=== PATIENT | female | born 1960 | race Caucasian/White ===

== ENCOUNTER 2017-04-18 18:20 | Observation (INO) | payer OTHER ==
[2017-04-18] MEDS ORDERED: ZOFRAN ODT 4 MG PO (20:04)
[2017-04-18 20:42] LABS: BASOPHIL % 0.2 % (0.0-0.4); Basophil (Absolute #) 0.01 (0-0.4); Eosinophil % 2.6 % (0.00-5.0); Eosinophil (Absolute #) 0.12 (0-0.5); Granulocyte Absolute (ANC) 3.03 (1.4-6.9); Hematocrit 39.3 % (35-47); Hemoglobin 12.8 gm/dl (12.0-16.0); Lymphocyte (Absolute #) 1.03 (1.0-4.6); Lymphocytes % 22.7 % (24.0-44.0); Mean Cell Volume 88.7 fl (78-100); Mean Corpuscular Hemoglobin 28.9 pg (26-32); Mean Corpuscular Hgb Concent. 32.6 g/dl (32-36); Mean Platelet Volume 11.7 fl (6-9.5); Monocyte (Absolute #) 0.34 (0.0-1.3); Monocytes % 7.5 % (0.0-12.0); Platelet Count 126 K/mm3 (150-450); Red Blood Count 4.43 M/mm3 (4.1-5.4); Red Cell Distribution Width 14.3 % (11.5-14.0); White Blood Count 4.5 K/mm3 (4.0-10.5)
[2017-04-18 20:44] LABS: ADD MANUAL DIFF? NO (NO)
[2017-04-18] MEDS: Dextrose 5% -0.45 NaCl 1000 ML 1,000 ML IV (20:53)
[2017-04-18] MEDS: Zofran 4 MG/2 ML VIAL IV (20:58)
[2017-04-18 21:05] LABS: ALBUMIN 3.4 g/dL (3.4-5.0); ALKALINE PHOSPHATASE 275 U/L (46-116); BLOOD UREA NITROGEN 17 mg/dL (9-20); CHLORIDE 104 mEq/L (98-107); Calcium 9.1 mg/dL (8.5-10.1); Carbon Dioxide 27.2 mEq/L (21-32); Creatinine 1 0.85 mg/dl (0.55-1.30); EST GLOMERULAR FILTRATION RATE > 60 ML/MIN; Glucose 107 MG/DL (70-110); Potassium 3.7 mEq/L (3.5-5.1); SGOT/AST 37 U/L (15-37); SGPT/ALT 45 U/L (12-78); SODIUM 143 mEq/L (136-145); Total Protein 7.9 gm/dL (6.4-8.2)
[2017-04-18] MEDS: Actigall 300MG PO (23:00)
[2017-04-19] MEDS: Zofran 4 MG/2 ML VIAL IV ×2 (03:26→08:49)
[2017-04-19] MEDS: Oxycontin 10 MG ER PO (03:26)
[2017-04-19] MEDS ORDERED: MEDICATION INTERVENTION MC ×3 (08:15→10:15)
[2017-04-19] MEDS: Oxy-IR 5 MG PO (08:48)
[2017-04-19] MEDS: Dextrose 5% -0.45 NaCl 1000 ML 1,000 ML IV (08:49)
[2017-04-19] MEDS ORDERED: NON-FORMULARY ITEM (Omeprazole [Omeprazole] 40 MG) PO (10:00)
[2017-04-19] MEDS ORDERED: NON-FORMULARY ITEM (Mycophenolate Mofetil [Cellcept] 500 MG) PO (10:00)
[2017-04-19] MEDS ORDERED: CELECOXIB 50 MG PO (10:00)
[2017-04-19] MEDS ORDERED: MODAFINIL 200 MG PO (10:00)
[2017-04-19] MEDS ORDERED: SPIRONOLACTONE 50 MG PO (10:00)
[2017-04-19] MEDS: Aldactone 25 MG PO (10:19)
[2017-04-19] MEDS: Protonix 40MG Tablet PO (10:20)
[2017-04-19] MEDS: Colace 100 MG PO (10:20)
[2017-04-19] MEDS: Zestril 20 MG PO (10:21)
[2017-04-19] MEDS: Provigil 100MG Tablet PO (10:21)
[2017-04-19] MEDS: ENOXAPARIN SODIUM SQ (10:21)
[2017-04-19] MEDS ORDERED: LIPITOR 40MG PO (22:00)
== END 2017-04-19 12:50 | disposition home or self-care (01) ==
LOC: MED SURG 18:20
CPT/HCPCS: 36415; 74176; 80053; 85025; 93005; J1642; J1650; J2405